=== PATIENT | male | born 1995 | race Caucasian/White ===

== ENCOUNTER 2020-09-03 10:15 | Emergency (ER) | payer SELFPAY ==
[~2020-09-03] VITALS: Ht 180.3 cm; Wt 74.8 kg
[2020-09-03 10:22] VITALS: BP 139/98
== END 2020-09-03 11:38 | disposition home or self-care (01) ==
LOC: MED 10:15
DX: S92.424A Nondisplaced fracture of distal phalanx of right great toe, initial encounter for closed fracture (principal); F17.200 Nicotine dependence, unspecified, uncomplicated; Y04.2XXA Assault by strike against or bumped into by another person, initial encounter; Y93.89 Activity, other specified; Y92.89 Other specified places as the place of occurrence of the external cause; Y99.8 Other external cause status
CPT/HCPCS: 73660; 99283